=== PATIENT | male | born 1955 | race Caucasian/White ===

== ENCOUNTER 2019-02-05 18:25 | Inpatient (IN) | payer BC ==
[~2019-02-05] VITALS: Ht 182.9 cm; Wt 191.8 kg
[2019-02-05 19:45] LABS: BASOPHILS # (AUTO) 0.1 X10'3 (0-0.2); BASOPHILS % (AUTO) 1.3 % (0-1); EOSINOPHILS # (AUTO) 0.1 X10'3 (0-0.9); EOSINOPHILS % (AUTO) 1.9 % (0-6); HEMATOCRIT 44.5 % (42.0-52.0); HEMOGLOBIN 14.6 g/dl (14.0-17.9); LYMPHOCYTES # (AUTO) 1.7 X10'3 (1.1-4.8); LYMPHOCYTES % (AUTO) 21.9 % (21-51); MEAN CORPUSCULAR HEMOGLOBIN 31.8 PG (27.0-31.0); MEAN CORPUSCULAR HGB CONC 32.7 g/dL (33.0-36.5); MEAN CORPUSCULAR VOLUME 97.4 FL (78-98); MEAN PLATELET VOLUME 7.7 FL (7.4-10.4); MONOCYTES # (AUTO) 0.6 X10'3 (0-0.9); MONOCYTES % (AUTO) 7.9 % (2-12); NEUTROPHILS # (AUTO) 5.1 X10'3 (1.8-7.7); PLATELET COUNT 175 X10'3 (140-440); RED BLOOD COUNT 4.57 X10'6 (4.70-6.10); WHITE BLOOD COUNT 7.6 X10'3 (4.5-11.0)
[2019-02-05 19:50] LABS: ALANINE AMINOTRANSFERASE 32 U/L (12-78); ALBUMIN 3.7 G/DL (3.4-5.0); ALBUMIN/GLOBULIN RATIO 0.9 (1.1-1.5); ALKALINE PHOSPHATASE 90 IU/L (46-116); ANION GAP 3 (8-16); ASPARTATE AMINO TRANSFERASE 21 U/L (10-37); BILIRUBIN,TOTAL 0.4 MG/DL (0.1-1.0); BLOOD UREA NITROGEN 21 MG/DL (7-18); BUN/CREATININE RATIO 20.6 (5.4-32.0); CALCIUM 8.8 MG/DL (8.5-10.1); CHLORIDE 105 MMOL/L (99-107); CREATININE 1.02 MG/DL (0.60-1.10); GLUCOSE 135 MG/DL (70-104); POTASSIUM 4.3 MMOL/L (3.5-5.1); SODIUM 145 MMOL/L (135-145); TOTAL CARBON DIOXIDE 37.1 MMOL/L (24-32); TOTAL PROTEIN 7.8 G/DL (6.4-8.2); eGFR 74 ML/MIN
[2019-02-05 19:52] LABS: PARTIAL THROMBOPLASTIN TIME 25 SECONDS (22-32)
[2019-02-05] MEDS ORDERED: CARV3.122 PO (20:24)
[2019-02-05] MEDS ORDERED: ASPI-1265 PO (20:24)
[2019-02-05] MEDS ORDERED: DICL100G15 TOP (20:24)
[2019-02-05] MEDS ORDERED: FLUT1AER (20:24)
[2019-02-05] MEDS ORDERED: ALBU8.5H8 INH (20:24)
[2019-02-05] MEDS ORDERED: LORA10TA7 PO (20:24)
[2019-02-05] MEDS ORDERED: MONT10TA21 PO (20:24)
[2019-02-05] MEDS ORDERED: LOSA1TAB41 PO (20:24)
[2019-02-05] MEDS ORDERED: FLUT16SP2 BOTHNARES (20:24)
[2019-02-05] MEDS ORDERED: POTA20TA10 PO (20:24)
[2019-02-05] MEDS ORDERED: FURO40TA4 PO (20:24)
[2019-02-05 20:27] LABS: CLARITY,URINE CLEAR (Clear); COLOR,URINE STRAW (Yellow); GLUCOSE, URINE NEGATIVE (Neg); KETONES,URINE NEGATIVE (Neg); LEUKOCYTE ESTERASE ,URINE NEGATIVE (Neg); NITRITES, URINE NEGATIVE (Neg); OCCULT BLOOD,URINE NEGATIVE (Neg); PROTEIN,URINE NEGATIVE (Neg); UA COLLECTION TYPE URINAL; UROBILINOGEN,URINE 0.2 E.U/dL (0.2-1.0)
[2019-02-05] MEDS ORDERED: furosemide 10 MG/1 ML 10ml inj IV ONE (21:10)
[2019-02-05] MEDS ORDERED: acetaminophen 325mg tablet PO PRN (21:35)
[2019-02-05] MEDS ORDERED: magnesium 4gm in 100ml NS 100 ML IV PRN (21:35)
[2019-02-05] MEDS ORDERED: potassium CL 10mEq/100ml bag 100 ML IV PRN ×2 (21:35)
[2019-02-05] MEDS ORDERED: magnesium hydroxide 30ml (MOM) UD suspension PO PRN (21:35)
[2019-02-05] MEDS ORDERED: potassium Cl 20 mEq SR tablet PO PRN ×2 (21:35)
[2019-02-05] MEDS ORDERED: mag hydrox/Alum hydrox/simeth 30ml oral suspension PO PRN (21:35)
[2019-02-05] MEDS ORDERED: magnesium Cl slow-release 64mg tablet PO PRN (21:35)
[2019-02-05] MEDS ORDERED: ondansetron/PF 4mg/2ml inj IV PRN (21:35)
[2019-02-05] MEDS ORDERED: magnesium 2GM in 50ml NS 50 ML IV PRN (21:35)
--- NOTE | 2019-02-05 21:53 | NUR ---
Attempted to phone report to inpatient unit. RN not available, will attempt again shortly.
[2019-02-05 22:45] VITALS: BP 159/81
[2019-02-06] MEDS ORDERED: ipratropium/albuterol 3ml nebule NEB PRN (00:25)
[2019-02-06] MEDS: ipratropium/albuterol 3ml nebule NEB SCH ×5 (00:57→19:33)
[2019-02-06 02:00] VITALS: BP 126/56
[2019-02-06 02:04] LABS: BASOPHILS # (AUTO) 0.1 X10'3 (0-0.2); BASOPHILS % (AUTO) 1.2 % (0-1); EOSINOPHILS # (AUTO) 0.1 X10'3 (0-0.9); HEMATOCRIT 43.7 % (42.0-52.0); HEMOGLOBIN 14.7 g/dl (14.0-17.9); LYMPHOCYTES # (AUTO) 1.9 X10'3 (1.1-4.8); LYMPHOCYTES % (AUTO) 26.3 % (21-51); MEAN CORPUSCULAR HEMOGLOBIN 32.5 PG (27.0-31.0); MEAN CORPUSCULAR HGB CONC 33.6 g/dL (33.0-36.5); MEAN CORPUSCULAR VOLUME 96.9 FL (78-98); MEAN PLATELET VOLUME 7.6 FL (7.4-10.4); MONOCYTES # (AUTO) 0.7 X10'3 (0-0.9); MONOCYTES % (AUTO) 8.9 % (2-12); NEUTROPHILS # (AUTO) 4.5 X10'3 (1.8-7.7); NEUTROPHILS % (AUTO) 61.6 % (42-75); PLATELET COUNT 164 X10'3 (140-440); RED BLOOD COUNT 4.51 X10'6 (4.70-6.10); RED CELL DISTRIBUTION WIDTH 14.5 % (11.5-14.5); WHITE BLOOD COUNT 7.4 X10'3 (4.5-11.0)
[2019-02-06 02:20] LABS: ALBUMIN 3.8 G/DL (3.4-5.0); ANION GAP 4 (8-16); BLOOD UREA NITROGEN 24 MG/DL (7-18); BUN/CREATININE RATIO 23.1 (5.4-32.0); CALCIUM 9.1 MG/DL (8.5-10.1); CHLORIDE 103 MMOL/L (99-107); CREATININE 1.04 MG/DL (0.60-1.10); GLUCOSE 111 MG/DL (70-104); MAGNESIUM 2.2 MG/DL (1.5-2.4); SODIUM 144 MMOL/L (135-145); TOTAL CARBON DIOXIDE 37.2 MMOL/L (24-32); eGFR 72 ML/MIN
--- NOTE | 2019-02-06 06:00 | NUR ---
Patient in room PCU 3013. I have received report from Sushant DOBBS and had the opportunity to ask questions and assume patient care.
--- NOTE | 2019-02-06 06:34 | NUR ---
Problems reprioritized. Patient report given, questions answered & plan of care reviewed with Titi Rn. Bedside report completed. pt resting quielty. Cpap currently on, setting at 40 % FIo2. no distress noted.
[2019-02-06 06:52] VITALS: BP 138/58
[2019-02-06] MEDS: budesonide 0.5mg/2ml UD nebule IH SCH (07:51)
[2019-02-06] MEDS: K and/or MAG REPLACEMENT MC SCH (08:00)
--- NOTE | 2019-02-06 08:20 | NUR ---
Pt had a 4 beat run of V-tach at 0800. Dr. Spears aware, no new orders
[2019-02-06] MEDS: furosemide 10 MG/1 ML 10ml inj IV SCH ×2 (08:21→19:57)
[2019-02-06] MEDS: HYDROchlorothiazide 12.5mg capsule PO SCH (08:22)
[2019-02-06] MEDS: montelukast 10mg tablet PO SCH (08:22)
[2019-02-06] MEDS: loratadine 10mg tablet PO SCH (08:22)
[2019-02-06] MEDS: carVEDilol 3.125mg tablet PO SCH ×2 (08:22→19:56)
[2019-02-06] MEDS: aspirin 81mg tab.chew PO SCH (08:22)
[2019-02-06] MEDS: enoxaparin 40mg/0.4ml syringe SQ SCH (08:23)
[2019-02-06] MEDS: losartan 50mg tablet PO SCH (08:25)
[2019-02-06] MEDS ORDERED: HYDR25TA4 PO (09:03)
[2019-02-06 11:00] VITALS: BP 158/83
[2019-02-06 15:00] VITALS: BP 139/69
[2019-02-06 18:00] VITALS: BP 132/84
--- NOTE | 2019-02-06 18:00 | NUR ---
Patient in room PCU 3013A I have received report from DILIA Walls and had the opportunity to ask questions and assume patient care. Pt is A & O X4, denies CP, dizziness, n/v. He is in 3L of oxygen via NC and rated pain 0/10.
--- NOTE | 2019-02-06 18:00 | NUR ---
Problems reprioritized. Patient report given, questions answered & plan of care reviewed with gene DOBBS.
[2019-02-06 20:00] VITALS: BP 110/69
[2019-02-07 02:00] VITALS: BP 162/56
--- NOTE | 2019-02-07 06:00 | NUR ---
Problems reprioritized. Patient report given, questions answered & plan of care reviewed with DILIA Walls. Pt stable at shift change
--- NOTE | 2019-02-07 06:00 | NUR ---
Patient in room PCU 3013. I have received report from Dennis DOBBS and had the opportunity to ask questions and assume patient care.
[2019-02-07 06:29] LABS: ALBUMIN 3.3 G/DL (3.4-5.0); ANION GAP 2 (8-16); BLOOD UREA NITROGEN 25 MG/DL (7-18); BUN/CREATININE RATIO 23.6 (5.4-32.0); CALCIUM 8.9 MG/DL (8.5-10.1); CHLORIDE 102 MMOL/L (99-107); CREATININE 1.06 MG/DL (0.60-1.10); GLUCOSE 98 MG/DL (70-104); MAGNESIUM 2.3 MG/DL (1.5-2.4); POTASSIUM 3.6 MMOL/L (3.5-5.1); SODIUM 144 MMOL/L (135-145); TOTAL CARBON DIOXIDE 39.9 MMOL/L (24-32); eGFR 70 ML/MIN
[2019-02-07 06:39] LABS: BASOPHILS % (AUTO) 0.6 % (0-1); EOSINOPHILS # (AUTO) 0.2 X10'3 (0-0.9); EOSINOPHILS % (AUTO) 2.5 % (0-6); HEMATOCRIT 42.5 % (42.0-52.0); LYMPHOCYTES # (AUTO) 1.7 X10'3 (1.1-4.8); LYMPHOCYTES % (AUTO) 26.7 % (21-51); MEAN CORPUSCULAR HEMOGLOBIN 32.2 PG (27.0-31.0); MEAN CORPUSCULAR VOLUME 97.6 FL (78-98); MEAN PLATELET VOLUME 7.9 FL (7.4-10.4); MONOCYTES # (AUTO) 0.7 X10'3 (0-0.9); MONOCYTES % (AUTO) 11.3 % (2-12); NEUTROPHILS # (AUTO) 3.8 X10'3 (1.8-7.7); NEUTROPHILS % (AUTO) 58.9 % (42-75); PLATELET COUNT 143 X10'3 (140-440); RED BLOOD COUNT 4.35 X10'6 (4.70-6.10); WHITE BLOOD COUNT 6.4 X10'3 (4.5-11.0)
[2019-02-07] MEDS: budesonide 0.5mg/2ml UD nebule IH SCH (07:30)
[2019-02-07] MEDS: ipratropium/albuterol 3ml nebule NEB SCH ×4 (07:31→19:43)
[2019-02-07] MEDS: K and/or MAG REPLACEMENT MC SCH (08:00)
[2019-02-07] MEDS: montelukast 10mg tablet PO SCH (08:01)
[2019-02-07] MEDS: furosemide 10 MG/1 ML 10ml inj IV SCH ×2 (08:01→19:47)
[2019-02-07] MEDS: HYDROchlorothiazide 12.5mg capsule PO SCH (08:01)
[2019-02-07] MEDS: enoxaparin 40mg/0.4ml syringe SQ SCH (08:02)
[2019-02-07] MEDS: aspirin 81mg tab.chew PO SCH (08:02)
[2019-02-07] MEDS: loratadine 10mg tablet PO SCH (08:02)
[2019-02-07] MEDS: carVEDilol 3.125mg tablet PO SCH ×2 (08:02→19:47)
[2019-02-07] MEDS: losartan 50mg tablet PO SCH (08:02)
[2019-02-07] MEDS: nystatin 15 GM powder TP SCH ×3 (08:03→19:59)
[2019-02-07 11:00] VITALS: BP 127/61
--- NOTE | 2019-02-07 14:09 | NUR ---
Pt ambulated 300ft with fww while on 3L NC. Pt did not complain of any sob and tolerated well. Pt's O2 dropped to 89% at lowest point.
[2019-02-07 15:00] VITALS: BP 129/63
[2019-02-07 18:00] VITALS: BP 129/63
--- NOTE | 2019-02-07 18:08 | NUR ---
Patient in room PCU 3013A. I have received report from DILIA Walls and had the opportunity to ask questions and assume patient care. Pt is alert and oriented x 4, denies dizziness, CP, n/v and rated pain 0/10.
--- NOTE | 2019-02-07 18:08 | NUR ---
Problems reprioritized. Patient report given, questions answered & plan of care reviewed with Dennis DOBBS.
[2019-02-07 22:00] VITALS: BP 143/71
[2019-02-07] MEDS: acetaminophen 325mg tablet PO PRN (23:31)
[2019-02-08 02:00] VITALS: BP 99/80
[2019-02-08 06:00] VITALS: BP 115/64
--- NOTE | 2019-02-08 06:20 | NUR ---
Problems reprioritized. Patient report given, questions answered & plan of care reviewed with DILIA Stringer. Pt stable at shift change
--- NOTE | 2019-02-08 06:25 | NUR ---
Patient in room PCU 3013. I have received report from Dennis DOBBS and had the opportunity to ask questions and assume patient care.
[2019-02-08 06:26] LABS: ALBUMIN 3.6 G/DL (3.4-5.0); ANION GAP 4 (8-16); BASOPHILS % (AUTO) 0.6 % (0-1); BLOOD UREA NITROGEN 20 MG/DL (7-18); BUN/CREATININE RATIO 18.7 (5.4-32.0); CALCIUM 9.1 MG/DL (8.5-10.1); CHLORIDE 99 MMOL/L (99-107); CREATININE 1.07 MG/DL (0.60-1.10); EOSINOPHILS # (AUTO) 0.1 X10'3 (0-0.9); EOSINOPHILS % (AUTO) 1.4 % (0-6); GLUCOSE 102 MG/DL (70-104); HEMATOCRIT 44.8 % (42.0-52.0); HEMOGLOBIN 15.1 g/dl (14.0-17.9); LYMPHOCYTES # (AUTO) 1.5 X10'3 (1.1-4.8); LYMPHOCYTES % (AUTO) 18.9 % (21-51); MAGNESIUM 2.2 MG/DL (1.5-2.4); MEAN CORPUSCULAR HEMOGLOBIN 32.6 PG (27.0-31.0); MEAN CORPUSCULAR HGB CONC 33.8 g/dL (33.0-36.5); MEAN CORPUSCULAR VOLUME 96.5 FL (78-98); MONOCYTES % (AUTO) 12.5 % (2-12); NEUTROPHILS # (AUTO) 5.5 X10'3 (1.8-7.7); NEUTROPHILS % (AUTO) 66.6 % (42-75); PLATELET COUNT 155 X10'3 (140-440); POTASSIUM 3.4 MMOL/L (3.5-5.1); RED BLOOD COUNT 4.65 X10'6 (4.70-6.10); RED CELL DISTRIBUTION WIDTH 13.9 % (11.5-14.5); SODIUM 142 MMOL/L (135-145); TOTAL CARBON DIOXIDE 39.2 MMOL/L (24-32); WHITE BLOOD COUNT 8.2 X10'3 (4.5-11.0); eGFR 70 ML/MIN
--- NOTE | 2019-02-08 06:37 | NUR ---
Patient in room PCU 3011. I have received report from Dennis DOBBS and had the opportunity to ask questions and assume patient care.
[2019-02-08] MEDS: ipratropium/albuterol 3ml nebule NEB SCH ×3 (06:58→14:57)
[2019-02-08] MEDS: budesonide 0.5mg/2ml UD nebule IH SCH (07:00)
--- NOTE | 2019-02-08 07:10 | NUR ---
PT. ON BI-PAP WHEN I ARRIVED BUT WANTED TO TAKE IT OFF RIGHT AWAY. NO BIPAP ASSESSMENT Addendum: 02/08/19 at 0711 by Armani Mendoza RT Amended: Links added.
[2019-02-08] MEDS: K and/or MAG REPLACEMENT MC SCH (08:00)
[2019-02-08] MEDS: enoxaparin 40mg/0.4ml syringe SQ SCH (08:19)
[2019-02-08] MEDS: nystatin 15 GM powder TP SCH ×2 (08:19→13:19)
[2019-02-08] MEDS: loratadine 10mg tablet PO SCH (08:21)
[2019-02-08] MEDS: HYDROchlorothiazide 12.5mg capsule PO SCH (08:21)
[2019-02-08] MEDS: losartan 50mg tablet PO SCH (08:21)
[2019-02-08] MEDS: carVEDilol 3.125mg tablet PO SCH (08:22)
[2019-02-08] MEDS: montelukast 10mg tablet PO SCH (08:22)
[2019-02-08] MEDS: aspirin 81mg tab.chew PO SCH (08:22)
[2019-02-08] MEDS: acetaminophen 325mg tablet PO PRN ×2 (08:23→15:27)
[2019-02-08] MEDS: furosemide 10 MG/1 ML 10ml inj IV SCH (08:24)
--- NOTE | 2019-02-08 09:50 | NUR ---
Dr. Rodriguez at the bedside. Spoke with the patient and answered all questions/concerns. Per MD, pt okay to d/c later today after he walks 100 feet.
[2019-02-08 11:00] VITALS: BP 123/64
[2019-02-08] MEDS ORDERED: LOSA50TA64 PO ×3 (15:21→16:12)
[2019-02-08] MEDS ORDERED: FURO-150 PO (15:21)
--- NOTE | 2019-02-08 15:59 | NUR ---
Malou Rodriguez regarding d/c medications PAGER ID: [phone] MESSAGE: Room 3013A, Xander Bains. I have a question regarding pt's d/c medications, please call. Jyoti DOBBS ex.[phone] Addendum: 02/08/19 at 1611 by Radha Samuels RN Per MD d/c order for Losartan Potassium, increase tablets dispensed from 30 to 60 tablets Addendum: 02/08/19 at 1613 by Radha Samuels RN Per , the new orders for discharge medication, Losartan, needs to be 60 tabs instead of 30 tabs dispensed.
--- NOTE | 2019-02-08 16:38 | NUR ---
Pt okay to d/c per , d/c instructions reviewed with patient and , all questions answered regarding new prescriptions/disease management/follow up. Diabetes survival skills and CHF management were reviewed with the pt. Pt made own f/u apt. w/ Dr. Mattson this Saturday. New prescriptions called into [facility] pharmacy in [place]. Tele monitor discontinued, removed PIV. Pt left the unit in a wheelchair w/ and RN and was helped into own private vehicle.
== END 2019-02-08 16:50 | disposition home or self-care (01) | DRG 291 ==
LOC: ER 18:25 → ED HOLD 21:53 → PCU 3S 22:00
PROVIDERS: ADMIT Hospitalist; ATTEND Hospitalist
PROC: 5A09357 Assistance with Respiratory Ventilation, Less than 24 Consecutive Hours, Continuous Positive Airway Pressure (ICD-10-PCS; principal; 2019-02-06)
PROC: 5A09357 Assistance with Respiratory Ventilation, Less than 24 Consecutive Hours, Continuous Positive Airway Pressure (ICD-10-PCS; 2019-02-07)
PROC: 5A09357 Assistance with Respiratory Ventilation, Less than 24 Consecutive Hours, Continuous Positive Airway Pressure (ICD-10-PCS; 2019-02-08)
DX: I50.33 Acute on chronic diastolic (congestive) heart failure (principal); J96.01 Acute respiratory failure with hypoxia; J44.9 Chronic obstructive pulmonary disease, unspecified; G47.30 Sleep apnea, unspecified; E66.01 Morbid (severe) obesity due to excess calories; Z88.8 Allergy status to other drugs, medicaments and biological substances; Z79.899 Other long term (current) drug therapy
CPT/HCPCS: 36415; 71045; 80048; 80053; 81003; 83735; 83880; 84484; 85025; 85610; 85730; 87081; 93005; 93306; 94640; 94660; 94760; G0378; J1650; J1940; J7626

== ENCOUNTER 2020-12-09 21:33 | Inpatient (IN) | payer MEDICARE ==
[~2020-12-09] VITALS: Ht 182.9 cm; Wt 193.1 kg
[~2020-12-09 21:33] MED LIST: ALBU8.5H17 INH; ASPI-1265 PO; CARV3.122 PO; DICL100G15 TOP; FLUT16SP2 BOTHNARES; FLUT1AER IH; FURO40TA4 PO; LOSA50TA64 PO; MONT10TA21 PO; POTA-197 PO
[2020-12-09 23:30] LABS: BASOPHILS % (AUTO) 0.5 % (0-1); EOSINOPHILS # (AUTO) 0.1 X10'3 (0-0.9); HEMATOCRIT 39.6 % (42.0-52.0); HEMOGLOBIN 12.7 g/dl (14.0-17.9); LYMPHOCYTES # (AUTO) 1.2 X10'3 (1.1-4.8); MEAN CORPUSCULAR HEMOGLOBIN 33.7 PG (27.0-31.0); MEAN CORPUSCULAR HGB CONC 32.1 g/dL (33.0-36.5); MONOCYTES # (AUTO) 0.7 X10'3 (0-0.9); MONOCYTES % (AUTO) 11.2 % (2-12); NEUTROPHILS # (AUTO) 4.1 X10'3 (1.8-7.7); NEUTROPHILS % (AUTO) 67.3 % (42-75); PLATELET COUNT 143 X10'3 (140-440); RED BLOOD COUNT 3.78 X10'6 (4.70-6.10); RED CELL DISTRIBUTION WIDTH 14.3 % (11.5-14.5); WHITE BLOOD COUNT 6.1 X10'3 (4.5-11.0)
[2020-12-09 23:45] LABS: ALANINE AMINOTRANSFERASE 27 U/L (12-78); ALBUMIN 3.8 G/DL (3.4-5.0); ALBUMIN/GLOBULIN RATIO 0.9 (1.1-1.5); ALKALINE PHOSPHATASE 89 IU/L (46-116); ANION GAP -3 (8-16); ASPARTATE AMINO TRANSFERASE 19 U/L (10-37); BILIRUBIN,TOTAL 0.5 MG/DL (0.1-1.0); BLOOD UREA NITROGEN 18 MG/DL (7-18); BUN/CREATININE RATIO 16.7 (5.4-32.0); CALCIUM 8.8 MG/DL (8.5-10.1); CHLORIDE 104 MMOL/L (99-107); CREATININE 1.08 MG/DL (0.60-1.10); GLUCOSE 113 MG/DL (70-104); SODIUM 143 MMOL/L (135-145); TOTAL PROTEIN 8.1 G/DL (6.4-8.2); eGFR 68 ML/MIN
[2020-12-09 23:48] LABS: TOTAL CARBON DIOXIDE 41.8 MMOL/L (24-32)
--- NOTE | 2020-12-10 01:37 | NUR ---
TELE / NEURO WAS CONTACTED ON 12/10/20 @ 01:33 AM.
[2020-12-10] MEDS ORDERED: LOSA100T57 PO (02:37)
[2020-12-10] MEDS ORDERED: P-EP-35 PO (02:37)
[2020-12-10] MEDS ORDERED: APIX5TAB3 PO (02:37)
[2020-12-10 02:40] LABS: ABG HCO3 45.5 mmol/L (22.0-26.0); ABG PCO2 (T) 90.2 mmHg (35.0-48.0); ABG PO2 (T) 76.4 mmHg (75.0-100.0); ALLEN'S TEST POSITIVE; FCOHb 0.9 % (0.0-3.9); FLOW 3 L/min; FMetHb 0.2 % (0.0-1.5); PATIENT TEMPERATURE 36.7; TOTAL HEMOGLOBIN 13.4 G/dl (14.0-18.0)
[2020-12-10] MEDS ORDERED: magnesium Cl slow-release 64mg tablet PO PRN (02:45)
[2020-12-10] MEDS ORDERED: potassium Cl 40MEQ/1/2NS 520ml 520 ML IV PRN ×2 (02:45)
[2020-12-10] MEDS ORDERED: potassium Cl 20 mEq SR tablet PO PRN ×2 (02:45)
[2020-12-10] MEDS ORDERED: magnesium 2GM in 50ml NS 50 ML IV PRN (02:45)
[2020-12-10] MEDS ORDERED: magnesium 4gm in 100ml NS 100 ML IV PRN (02:45)
[2020-12-10] MEDS ORDERED: acetaminophen 325mg tablet PO PRN (02:45)
[2020-12-10] MEDS ORDERED: ondansetron/PF 4mg/2ml inj IV PRN (02:45)
[2020-12-10] MEDS ORDERED: albuterol 2.5 MG/3 ML nebule NEB PRN (03:20)
[2020-12-10] MEDS ORDERED: LORA10TA7 PO (03:23)
[2020-12-10 03:53] LABS: HEMOGLOBIN A1C 6.6 % (4.5-6.2)
[2020-12-10] MEDS: normal saline 1000ml 1,000 ML IV SCH ×2 (03:57→16:58)
[2020-12-10] MEDS ORDERED: DICLOFENAC SODIUM TOP PRN (07:05)
[2020-12-10] MEDS: budesonide 0.5mg/2ml UD nebule IH SCH ×2 (08:00→20:11)
[2020-12-10] MEDS ORDERED: PERFLUTREN PROTEIN-A MICROSPHR (Optison) 0.22 MG/ML 3ML VIAL IV ONE (08:00)
[2020-12-10] MEDS ORDERED: heparin, porcine 5000 units/ml vial SQ SCH (08:00)
[2020-12-10] MEDS: aspirin 81mg, enteric-coated 1 TAB TABLET.DR PO SCH (08:00)
[2020-12-10] MEDS: K and/or MAG REPLACEMENT MC SCH ×2 (08:00→19:13)
[2020-12-10] MEDS: fluticasone nasal spray 16GM bottle NS SCH (08:00)
[2020-12-10] MEDS: montelukast 10mg tablet PO SCH (08:25)
[2020-12-10] MEDS: carVEDilol 3.125mg tablet PO SCH ×2 (08:26→19:49)
[2020-12-10] MEDS: furosemide 40mg tablet PO SCH ×2 (08:27→19:49)
[2020-12-10] MEDS: potassium Cl 20 mEq SR tablet PO SCH ×2 (08:27→19:48)
[2020-12-10] MEDS: apixaban 5mg tablet PO SCH ×2 (09:45→19:48)
[2020-12-10] MEDS: losartan 50mg tablet PO SCH (09:45)
[2020-12-10] MEDS: loratadine 10mg tablet PO SCH (09:46)
--- NOTE | 2020-12-10 10:05 | NUR ---
DR. HAILE PLACED PACEMAKER IN PT, MRI REQUESTING MORE INFORMATION BEFORE IT CAN BE DETERMINED IF PT IS AN MRI STELLA
[2020-12-10] MEDS: albuterol 2.5 MG/3 ML nebule NEB PRN ×2 (15:11→20:11)
[2020-12-10 23:32] VITALS: BP 166/81
[2020-12-11 00:24] VITALS: BP 152/70
[2020-12-11] MEDS: acetaminophen 325mg tablet PO PRN ×2 (00:49→12:33)
[2020-12-11] MEDS: albuterol 2.5 MG/3 ML nebule NEB PRN (01:26)
--- NOTE | 2020-12-11 05:48 | NUR ---
Received Patient from ED PCU 3027. I have received report from ED nurse and had the opportunity to ask questions and assume patient care. Patient on oxygen via nasal cannula, no respiratory distress noted.
--- NOTE | 2020-12-11 06:15 | NUR ---
Patient in room PCU 3027. I have received report from [facility] and had the opportunity to ask questions and assume patient care. Patient is resting comfortably in bed.
[2020-12-11 06:53] LABS: BASOPHILS % (AUTO) 0.5 % (0-1); EOSINOPHILS # (AUTO) 0.1 X10'3 (0-0.9); EOSINOPHILS % (AUTO) 2.2 % (0-6); HEMATOCRIT 35.1 % (42.0-52.0); HEMOGLOBIN 11.6 g/dl (14.0-17.9); LYMPHOCYTES # (AUTO) 0.9 X10'3 (1.1-4.8); LYMPHOCYTES % (AUTO) 19.4 % (21-51); MEAN CORPUSCULAR HEMOGLOBIN 33.9 PG (27.0-31.0); MEAN CORPUSCULAR HGB CONC 33.1 g/dL (33.0-36.5); MEAN CORPUSCULAR VOLUME 102.4 FL (78-98); MEAN PLATELET VOLUME 7.8 FL (7.4-10.4); MONOCYTES # (AUTO) 0.4 X10'3 (0-0.9); MONOCYTES % (AUTO) 10.1 % (2-12); NEUTROPHILS % (AUTO) 67.8 % (42-75); PLATELET COUNT 118 X10'3 (140-440); RED BLOOD COUNT 3.43 X10'6 (4.70-6.10); RED CELL DISTRIBUTION WIDTH 13.6 % (11.5-14.5); WHITE BLOOD COUNT 4.4 X10'3 (4.5-11.0)
[2020-12-11 06:56] LABS: ALANINE AMINOTRANSFERASE 22 U/L (12-78); ALBUMIN 3.5 G/DL (3.4-5.0); ALBUMIN/GLOBULIN RATIO 0.9 (1.1-1.5); ALKALINE PHOSPHATASE 70 IU/L (46-116); ANION GAP 3 (8-16); ASPARTATE AMINO TRANSFERASE 21 U/L (10-37); BILIRUBIN,TOTAL 0.7 MG/DL (0.1-1.0); BLOOD UREA NITROGEN 18 MG/DL (7-18); CALCIUM 8.9 MG/DL (8.5-10.1); CHLORIDE 104 MMOL/L (99-107); CHOL/HDL RATIO 3.2 (0.00-4.99); CHOLESTEROL 127 MG/DL (0-200); CREATININE 0.82 MG/DL (0.60-1.10); GLUCOSE 96 MG/DL (70-104); HDL CHOLESTEROL 40 MG/DL (35-60); LDL CHOLESTEROL 71 MG/DL (50-100); MAGNESIUM 2.5 MG/DL (1.5-2.4); PHOSPHORUS 2.8 MG/DL (2.3-4.5); POTASSIUM 3.9 MMOL/L (3.5-5.1); SODIUM 148 MMOL/L (135-145); TOTAL PROTEIN 7.2 G/DL (6.4-8.2); TRIGLYCERIDES 82 MG/DL (20-135); eGFR > 90 ML/MIN
[2020-12-11 06:59] LABS: TOTAL CARBON DIOXIDE 41.5 MMOL/L (24-32)
[2020-12-11 07:00] VITALS: BP 126/59
--- NOTE | 2020-12-11 07:02 | NUR ---
Page Sent promotional table spacer PAGER ID: [phone] MESSAGE: JL DOBBS [phone] RE: ENMANUEL STEWART [id number]. CRITICAL BLOOD GLUCOSE 407. THANK YOU
[2020-12-11] MEDS: normal saline 1000ml 1,000 ML IV SCH (07:16)
[2020-12-11] MEDS: albuterol 2.5 MG/3 ML nebule NEB SCH ×4 (07:22→19:38)
[2020-12-11] MEDS: budesonide 0.5mg/2ml UD nebule IH SCH ×2 (07:22→19:38)
--- NOTE | 2020-12-11 07:51 | NUR ---
Patient in room PCU 3027. I have received report from Danette DOBBS and had the opportunity to ask questions and assume patient care.
[2020-12-11] MEDS: fluticasone nasal spray 16GM bottle NS SCH (08:00)
[2020-12-11] MEDS: K and/or MAG REPLACEMENT MC SCH ×2 (08:00→20:00)
[2020-12-11] MEDS: carVEDilol 3.125mg tablet PO SCH ×2 (09:26→21:41)
[2020-12-11] MEDS: loratadine 10mg tablet PO SCH (09:26)
[2020-12-11] MEDS: losartan 50mg tablet PO SCH (09:27)
[2020-12-11] MEDS: apixaban 5mg tablet PO SCH ×2 (09:28→21:41)
[2020-12-11] MEDS: potassium Cl 20 mEq SR tablet PO SCH ×2 (09:28→21:40)
[2020-12-11] MEDS: montelukast 10mg tablet PO SCH (09:28)
[2020-12-11] MEDS: furosemide 40mg tablet PO SCH ×2 (09:28→21:40)
[2020-12-11] MEDS: atorvastatin 20mg tablet PO SCH (09:28)
[2020-12-11] MEDS: aspirin 81mg, enteric-coated 1 TAB TABLET.DR PO SCH (09:28)
[2020-12-11 11:00] VITALS: BP 154/74
--- NOTE | 2020-12-11 11:41 | NUR ---
[id number] page to Respiratory [id number] Herson. Patient has order for ABG and for cpap. Please set cpap up. Thank you Gayla [phone]
--- NOTE | 2020-12-11 11:44 | NUR ---
At bedside Dr. Stevenson gave me orders for a new ABG, cpap, and PT eval and treat. I also put in a WOC consult for [facility].
[2020-12-11] MEDS ORDERED: iohexol 350MG/ML 100ml bottle IV ONE (12:36)
[2020-12-11 15:00] VITALS: BP 119/50
--- NOTE | 2020-12-11 15:37 | NUR ---
Page Sent promotional table spacer PAGER ID: [phone] MESSAGE: [id number] Herson. Dr. Adames from [facility] would like you to call him to discuss findings from the CTA of head and neck. # [phone] . Gayla [phone]
[2020-12-11 16:53] LABS: ABG BASE EXCESS 12.8 mmol/L (-2.0-2.0); ABG HCO3 42.7 mmol/L (22.0-26.0); ABG OXYGEN SATURATION 90.8 % (94-97); ABG PCO2 (T) 86.7 mmHg (35.0-48.0); ALLEN'S TEST POSITIVE; FCOHb 0.6 % (0.0-3.9); FMetHb 0.3 % (0.0-1.5); TOTAL HEMOGLOBIN 12.6 G/dl (14.0-18.0)
--- NOTE | 2020-12-11 17:41 | NUR ---
Orientee documentation: I have reviewed and agree with all interventions, assessments performed and documented by Dariela Agosto Medication Administration: For this medication-pass time frame, all medication were reviewed, dispensed, administered and documented per hospital policy by Dariela DOBBS. .
[2020-12-11 18:00] VITALS: BP 98/74
--- NOTE | 2020-12-11 18:08 | NUR ---
Problems reprioritized. Patient report given, questions answered & plan of care reviewed with Yazmin DOBBS. Patient sleeping comfortably, on bipap, and in no acute distress. at bedside.
--- NOTE | 2020-12-11 18:11 | NUR ---
Patient in room PCU 3027. I have received report from Gayla RN/Yaima RN and had the opportunity to ask questions and assume patient care.
[2020-12-11 22:00] VITALS: BP 136/54
[2020-12-12 02:00] VITALS: BP 139/72
[2020-12-12] MEDS: normal saline 1000ml 1,000 ML IV SCH ×2 (03:40→11:52)
--- NOTE | 2020-12-12 06:11 | NUR ---
Problems reprioritized. Patient report given, questions answered & plan of care reviewed with DILIA Shukla/DILIA Erwin.
--- NOTE | 2020-12-12 06:51 | NUR ---
Patient in room PCU 3027. I have received report from Yazmin DOBBS and had the opportunity to ask questions and assume patient care.
[2020-12-12 07:00] VITALS: BP 142/74
[2020-12-12 07:08] LABS: BASOPHILS % (AUTO) 0.6 % (0-1); EOSINOPHILS # (AUTO) 0.1 X10'3 (0-0.9); EOSINOPHILS % (AUTO) 2.1 % (0-6); HEMATOCRIT 35.8 % (42.0-52.0); HEMOGLOBIN 11.9 g/dl (14.0-17.9); LYMPHOCYTES # (AUTO) 0.7 X10'3 (1.1-4.8); LYMPHOCYTES % (AUTO) 16.5 % (21-51); MEAN CORPUSCULAR HEMOGLOBIN 34.4 PG (27.0-31.0); MEAN CORPUSCULAR HGB CONC 33.2 g/dL (33.0-36.5); MEAN CORPUSCULAR VOLUME 103.5 FL (78-98); MEAN PLATELET VOLUME 7.9 FL (7.4-10.4); MONOCYTES # (AUTO) 0.5 X10'3 (0-0.9); MONOCYTES % (AUTO) 11.5 % (2-12); NEUTROPHILS % (AUTO) 69.3 % (42-75); PLATELET COUNT 114 X10'3 (140-440); RED BLOOD COUNT 3.46 X10'6 (4.70-6.10); RED CELL DISTRIBUTION WIDTH 13.6 % (11.5-14.5); WHITE BLOOD COUNT 4.4 X10'3 (4.5-11.0)
[2020-12-12] MEDS: albuterol 2.5 MG/3 ML nebule NEB SCH ×4 (07:11→19:57)
[2020-12-12] MEDS: budesonide 0.5mg/2ml UD nebule IH SCH ×2 (07:11→19:57)
[2020-12-12 07:35] LABS: ALANINE AMINOTRANSFERASE 24 U/L (12-78); ALBUMIN 3.3 G/DL (3.4-5.0); ALBUMIN/GLOBULIN RATIO 0.8 (1.1-1.5); ALKALINE PHOSPHATASE 70 IU/L (46-116); ANION GAP -1 (8-16); ASPARTATE AMINO TRANSFERASE 22 U/L (10-37); BILIRUBIN,TOTAL 0.7 MG/DL (0.1-1.0); BLOOD UREA NITROGEN 14 MG/DL (7-18); BUN/CREATININE RATIO 16.9 (5.4-32.0); CALCIUM 8.7 MG/DL (8.5-10.1); CHLORIDE 102 MMOL/L (99-107); CREATININE 0.83 MG/DL (0.60-1.10); GLUCOSE 97 MG/DL (70-104); MAGNESIUM 2.4 MG/DL (1.5-2.4); PHOSPHORUS 3.2 MG/DL (2.3-4.5); POTASSIUM 3.9 MMOL/L (3.5-5.1); SODIUM 139 MMOL/L (135-145); TOTAL CARBON DIOXIDE 38.2 MMOL/L (24-32); TOTAL PROTEIN 7.2 G/DL (6.4-8.2); eGFR > 90 ML/MIN
[2020-12-12] MEDS: K and/or MAG REPLACEMENT MC SCH ×2 (08:00→20:00)
[2020-12-12] MEDS: fluticasone nasal spray 16GM bottle NS SCH (08:13)
[2020-12-12] MEDS: aspirin 81mg, enteric-coated 1 TAB TABLET.DR PO SCH (08:14)
[2020-12-12] MEDS: loratadine 10mg tablet PO SCH (08:14)
[2020-12-12] MEDS: furosemide 40mg tablet PO SCH ×2 (08:14→21:28)
[2020-12-12] MEDS: potassium Cl 20 mEq SR tablet PO SCH ×2 (08:14→21:28)
[2020-12-12] MEDS: apixaban 5mg tablet PO SCH ×2 (08:14→21:28)
[2020-12-12] MEDS: atorvastatin 20mg tablet PO SCH (08:14)
[2020-12-12] MEDS: losartan 50mg tablet PO SCH (08:15)
[2020-12-12] MEDS: montelukast 10mg tablet PO SCH (08:16)
[2020-12-12] MEDS: carVEDilol 3.125mg tablet PO SCH ×2 (08:16→21:28)
[2020-12-12] MEDS: acetaminophen 325mg tablet PO PRN ×2 (08:24→22:56)
[2020-12-12] MEDS ORDERED: normal saline 1000ml 1,000 ML IVB ONE (10:00)
[2020-12-12 11:00] VITALS: BP 128/69
[2020-12-12] MEDS ORDERED: iohexol 350MG/ML 100ml bottle IV ONE (14:41)
[2020-12-12 15:00] VITALS: BP 144/63
--- NOTE | 2020-12-12 16:58 | NUR ---
Per Dwayne, director of wound care, ok to order a shalini bed for patient.
[2020-12-12 18:00] VITALS: BP 146/76
--- NOTE | 2020-12-12 18:03 | NUR ---
Problems reprioritized. Patient report given, questions answered & plan of care reviewed with Yazmin DOBBS. Patient just returned from CT and is resting in bed eating dinner.
[2020-12-12 22:00] VITALS: BP 165/97
--- NOTE | 2020-12-12 22:09 | NUR ---
RT Page Moshe Bains rm [id number] Pt states "too much air" is coming out of the bipap. Can you please assess and adjust? Thank you!
[2020-12-13 02:00] VITALS: BP 151/86
[2020-12-13] MEDS: normal saline 1000ml 1,000 ML IV SCH ×2 (03:33→16:50)
--- NOTE | 2020-12-13 04:52 | NUR ---
Patient in room U 3027. I have received report from DILIA Shukla and had the opportunity to ask questions and assume patient care. Addendum: 12/14/20 at 0456 by Julia Champion RN Time 1822
--- NOTE | 2020-12-13 06:15 | NUR ---
Problems reprioritized. Patient report given, questions answered & plan of care reviewed with DILIA Shukla and DILIA Erwin.
--- NOTE | 2020-12-13 06:18 | NUR ---
Patient in room PCU 3027. I have received report from Yazmin DOBBS and had the opportunity to ask questions and assume patient care. Patient resting in bed in no acute distress.
[2020-12-13 06:57] LABS: BASOPHILS % (AUTO) 0.5 % (0-1); EOSINOPHILS # (AUTO) 0.1 X10'3 (0-0.9); EOSINOPHILS % (AUTO) 1.7 % (0-6); HEMATOCRIT 35.3 % (42.0-52.0); HEMOGLOBIN 11.6 g/dl (14.0-17.9); LYMPHOCYTES # (AUTO) 0.8 X10'3 (1.1-4.8); LYMPHOCYTES % (AUTO) 18.4 % (21-51); MEAN CORPUSCULAR HEMOGLOBIN 33.9 PG (27.0-31.0); MEAN CORPUSCULAR HGB CONC 32.8 g/dL (33.0-36.5); MEAN CORPUSCULAR VOLUME 103.3 FL (78-98); MEAN PLATELET VOLUME 7.8 FL (7.4-10.4); MONOCYTES # (AUTO) 0.6 X10'3 (0-0.9); MONOCYTES % (AUTO) 12.3 % (2-12); NEUTROPHILS % (AUTO) 67.1 % (42-75); PLATELET COUNT 114 X10'3 (140-440); RED BLOOD COUNT 3.41 X10'6 (4.70-6.10); RED CELL DISTRIBUTION WIDTH 13.9 % (11.5-14.5); WHITE BLOOD COUNT 4.5 X10'3 (4.5-11.0)
[2020-12-13 07:00] VITALS: BP 148/63
[2020-12-13 07:12] LABS: ALANINE AMINOTRANSFERASE 24 U/L (12-78); ALBUMIN 3.3 G/DL (3.4-5.0); ALBUMIN/GLOBULIN RATIO 0.8 (1.1-1.5); ALKALINE PHOSPHATASE 70 IU/L (46-116); ANION GAP 0 (8-16); ASPARTATE AMINO TRANSFERASE 18 U/L (10-37); BILIRUBIN,TOTAL 0.8 MG/DL (0.1-1.0); BLOOD UREA NITROGEN 12 MG/DL (7-18); BUN/CREATININE RATIO 13.6 (5.4-32.0); CALCIUM 8.7 MG/DL (8.5-10.1); CHLORIDE 105 MMOL/L (99-107); CREATININE 0.88 MG/DL (0.60-1.10); GLUCOSE 101 MG/DL (70-104); MAGNESIUM 2.5 MG/DL (1.5-2.4); PHOSPHORUS 3.4 MG/DL (2.3-4.5); POTASSIUM 4.1 MMOL/L (3.5-5.1); SODIUM 142 MMOL/L (135-145); TOTAL PROTEIN 7.2 G/DL (6.4-8.2); eGFR 87 ML/MIN
[2020-12-13] MEDS: K and/or MAG REPLACEMENT MC SCH ×2 (08:00→20:00)
[2020-12-13] MEDS: budesonide 0.5mg/2ml UD nebule IH SCH (08:30)
[2020-12-13] MEDS: albuterol 2.5 MG/3 ML nebule NEB SCH ×5 (08:30→23:08)
[2020-12-13] MEDS: fluticasone nasal spray 16GM bottle NS SCH (08:50)
[2020-12-13] MEDS: montelukast 10mg tablet PO SCH (08:51)
[2020-12-13] MEDS: furosemide 40mg tablet PO SCH ×2 (08:51→19:58)
[2020-12-13] MEDS: loratadine 10mg tablet PO SCH (08:51)
[2020-12-13] MEDS: apixaban 5mg tablet PO SCH ×2 (08:51→19:58)
[2020-12-13] MEDS: potassium Cl 20 mEq SR tablet PO SCH ×2 (08:51→19:58)
[2020-12-13] MEDS: carVEDilol 3.125mg tablet PO SCH ×2 (08:53→19:58)
[2020-12-13] MEDS: aspirin 81mg, enteric-coated 1 TAB TABLET.DR PO SCH (08:53)
[2020-12-13] MEDS: losartan 50mg tablet PO SCH (08:53)
[2020-12-13] MEDS: atorvastatin 20mg tablet PO SCH (08:53)
[2020-12-13] MEDS: acetaminophen 325mg tablet PO PRN ×2 (09:36→16:50)
[2020-12-13 11:00] VITALS: BP 113/46
[2020-12-13 15:00] VITALS: BP 118/48
--- NOTE | 2020-12-13 17:41 | NUR ---
Orientee documentation: I have reviewed and agree with all interventions, assessments performed and documented by Yaima DOBBS . Orientee Medication Administration: For this medication-pass time frame, all medication were reviewed, dispensed, administered and documented per hospital policy by Yaima DOBBS.
--- NOTE | 2020-12-13 18:22 | NUR ---
Problems reprioritized. Patient report given, questions answered & plan of care reviewed with Julia DOBBS.
[2020-12-13 19:00] VITALS: BP 151/73
[2020-12-13] MEDS ORDERED: heparin 10,000 units/1 ML INJ IV ONE (22:20)
[2020-12-13 22:56] LABS: PARTIAL THROMBOPLASTIN TIME 26 SECONDS (22-32)
[2020-12-13 23:00] VITALS: BP 134/64
[2020-12-14] MEDS: heparin 25,000 UNIT/250ml bag 250 ML IV SCH ×3 (01:05→21:21)
[2020-12-14] MEDS: acetaminophen 325mg tablet PO PRN ×3 (01:11→20:53)
[2020-12-14] MEDS: albuterol 2.5 MG/3 ML nebule NEB PRN ×3 (02:23→23:13)
[2020-12-14 03:00] VITALS: BP 128/72
[2020-12-14 03:40] LABS: BASOPHILS % (AUTO) 0.6 % (0-1); EOSINOPHILS # (AUTO) 0.1 X10'3 (0-0.9); EOSINOPHILS % (AUTO) 1.6 % (0-6); HEMATOCRIT 35.2 % (42.0-52.0); HEMOGLOBIN 11.6 g/dl (14.0-17.9); LYMPHOCYTES # (AUTO) 0.8 X10'3 (1.1-4.8); LYMPHOCYTES % (AUTO) 15.6 % (21-51); MEAN CORPUSCULAR HEMOGLOBIN 33.4 PG (27.0-31.0); MEAN CORPUSCULAR VOLUME 101.2 FL (78-98); MEAN PLATELET VOLUME 7.6 FL (7.4-10.4); MONOCYTES # (AUTO) 0.5 X10'3 (0-0.9); MONOCYTES % (AUTO) 11.1 % (2-12); NEUTROPHILS # (AUTO) 3.4 X10'3 (1.8-7.7); NEUTROPHILS % (AUTO) 71.1 % (42-75); PLATELET COUNT 136 X10'3 (140-440); RED BLOOD COUNT 3.47 X10'6 (4.70-6.10); RED CELL DISTRIBUTION WIDTH 13.6 % (11.5-14.5); WHITE BLOOD COUNT 4.8 X10'3 (4.5-11.0)
[2020-12-14 03:59] LABS: ALANINE AMINOTRANSFERASE 27 U/L (12-78); ALBUMIN 3.3 G/DL (3.4-5.0); ALBUMIN/GLOBULIN RATIO 0.8 (1.1-1.5); ALKALINE PHOSPHATASE 76 IU/L (46-116); ANION GAP 5 (8-16); ASPARTATE AMINO TRANSFERASE 24 U/L (10-37); BILIRUBIN,TOTAL 0.7 MG/DL (0.1-1.0); BLOOD UREA NITROGEN 15 MG/DL (7-18); BUN/CREATININE RATIO 17.9 (5.4-32.0); CALCIUM 8.8 MG/DL (8.5-10.1); CHLORIDE 105 MMOL/L (99-107); CREATININE 0.84 MG/DL (0.60-1.10); GLUCOSE 109 MG/DL (70-104); MAGNESIUM 2.4 MG/DL (1.5-2.4); PHOSPHORUS 3.4 MG/DL (2.3-4.5); POTASSIUM 4.4 MMOL/L (3.5-5.1); SODIUM 146 MMOL/L (135-145); TOTAL CARBON DIOXIDE 36.5 MMOL/L (24-32); TOTAL PROTEIN 7.4 G/DL (6.4-8.2); eGFR > 90 ML/MIN
[2020-12-14 06:00] VITALS: BP 153/86
--- NOTE | 2020-12-14 06:32 | NUR ---
Problems reprioritized. Patient report given, questions answered & plan of care reviewed with DILIA Ingram.
[2020-12-14] MEDS: normal saline 1000ml 1,000 ML IV SCH ×2 (06:46→21:09)
[2020-12-14] MEDS: budesonide 0.5mg/2ml UD nebule IH SCH ×2 (07:53→18:51)
[2020-12-14] MEDS: K and/or MAG REPLACEMENT MC SCH ×2 (08:00→20:00)
[2020-12-14] MEDS: montelukast 10mg tablet PO SCH (08:19)
[2020-12-14] MEDS: aspirin 81mg, enteric-coated 1 TAB TABLET.DR PO SCH (08:19)
[2020-12-14] MEDS: furosemide 40mg tablet PO SCH ×2 (08:20→20:51)
[2020-12-14] MEDS: carVEDilol 3.125mg tablet PO SCH ×2 (08:20→20:53)
[2020-12-14] MEDS: atorvastatin 20mg tablet PO SCH (08:20)
[2020-12-14] MEDS: potassium Cl 20 mEq SR tablet PO SCH ×2 (08:20→20:52)
[2020-12-14] MEDS: loratadine 10mg tablet PO SCH (08:20)
[2020-12-14] MEDS: losartan 50mg tablet PO SCH (08:21)
[2020-12-14] MEDS: fluticasone nasal spray 16GM bottle NS SCH (08:24)
[2020-12-14] MEDS: heparin 10,000 units/1 ML INJ IV PRN ×2 (10:18→15:11)
[2020-12-14 11:00] VITALS: BP 133/70
[2020-12-14] MEDS: albuterol 2.5 MG/3 ML nebule NEB SCH ×3 (11:21→18:51)
--- NOTE | 2020-12-14 13:46 | NUR ---
Initial: Pt presented with c/o weakness in his hands, noted to have signs of hypercapnia present with elevated pCO2 per H&P. Stroke W/U is essentially negative per MD note. Pt s/p BSS with ST recs to continue regular texture consistency as pt swallowing well with no aspiration noted. Pt on a heart healthy diet documented with mostly 100% PO intake throughout LOS. D/w dietary to send double protein with meals for satiety. LBM 12/12. Will continue to follow and monitor need for additional nutrition intervention. Recommendations: 1) Continue heart healthy diet; advance to regular diet as medically indicated given lipid panel WNL 2) Double eggs WB, double meat BIDLD for satiety 3) Bowel care PRN 4) Scaled weight this admit; weekly scaled weights thereafter Addendum: 12/14/20 at [address] Amended: Links added.
[2020-12-14 15:00] VITALS: BP 146/75
--- NOTE | 2020-12-14 15:25 | NUR ---
DR. DELGADO PAGED: Moshe Ko [phone]: Pt's states that Dr. Blair ([phone])would like to speak to you regarding Lupron injection to be given before Saturday 12/16. And Pt's son Dk would like you to phone him . Thanks [phone]
[2020-12-14 18:00] VITALS: BP 136/71
--- NOTE | 2020-12-14 18:38 | NUR ---
Problems reprioritized. Patient report given, questions answered & plan of care reviewed with BRII RN.
[2020-12-14 22:00] VITALS: BP 153/87
[2020-12-15 02:00] VITALS: BP 149/80
[2020-12-15] MEDS: acetaminophen 325mg tablet PO PRN ×3 (03:10→23:15)
[2020-12-15] MEDS: albuterol 2.5 MG/3 ML nebule NEB PRN ×2 (03:40→23:36)
--- NOTE | 2020-12-15 06:10 | NUR ---
Patient in room PCU 3027. I have received report from Ni RN and had the opportunity to ask questions and assume patient care. Pt sitting up at edge of bed, back facing the doorway. breathing even, non labored. O2/NC/4LPM. Pt alert to voice. endorses pain to BLE, right worse than left. NS running @27
[2020-12-15 06:13] LABS: BASOPHILS % (AUTO) 0.5 % (0-1); EOSINOPHILS # (AUTO) 0.1 X10'3 (0-0.9); EOSINOPHILS % (AUTO) 2.7 % (0-6); HEMATOCRIT 36.7 % (42.0-52.0); HEMOGLOBIN 11.8 g/dl (14.0-17.9); LYMPHOCYTES # (AUTO) 0.8 X10'3 (1.1-4.8); LYMPHOCYTES % (AUTO) 18.3 % (21-51); MEAN CORPUSCULAR HEMOGLOBIN 33.1 PG (27.0-31.0); MEAN CORPUSCULAR HGB CONC 32.1 g/dL (33.0-36.5); MEAN CORPUSCULAR VOLUME 102.8 FL (78-98); MONOCYTES # (AUTO) 0.5 X10'3 (0-0.9); MONOCYTES % (AUTO) 11.4 % (2-12); NEUTROPHILS # (AUTO) 2.9 X10'3 (1.8-7.7); NEUTROPHILS % (AUTO) 67.1 % (42-75); PLATELET COUNT 130 X10'3 (140-440); RED BLOOD COUNT 3.56 X10'6 (4.70-6.10); RED CELL DISTRIBUTION WIDTH 13.5 % (11.5-14.5); WHITE BLOOD COUNT 4.4 X10'3 (4.5-11.0)
[2020-12-15 06:24] LABS: ALANINE AMINOTRANSFERASE 25 U/L (12-78); ALBUMIN 3.3 G/DL (3.4-5.0); ALBUMIN/GLOBULIN RATIO 0.8 (1.1-1.5); ALKALINE PHOSPHATASE 78 IU/L (46-116); ANION GAP 3 (8-16); ASPARTATE AMINO TRANSFERASE 18 U/L (10-37); BILIRUBIN,TOTAL 0.5 MG/DL (0.1-1.0); BLOOD UREA NITROGEN 15 MG/DL (7-18); BUN/CREATININE RATIO 17.6 (5.4-32.0); CALCIUM 8.7 MG/DL (8.5-10.1); CHLORIDE 105 MMOL/L (99-107); CREATININE 0.85 MG/DL (0.60-1.10); GLUCOSE 118 MG/DL (70-104); MAGNESIUM 2.4 MG/DL (1.5-2.4); PHOSPHORUS 3.7 MG/DL (2.3-4.5); POTASSIUM 4.1 MMOL/L (3.5-5.1); SODIUM 145 MMOL/L (135-145); TOTAL CARBON DIOXIDE 37.2 MMOL/L (24-32); TOTAL PROTEIN 7.7 G/DL (6.4-8.2); eGFR 90 ML/MIN
[2020-12-15 07:00] VITALS: BP 146/77
[2020-12-15] MEDS: albuterol 2.5 MG/3 ML nebule NEB SCH ×4 (07:08→19:00)
[2020-12-15] MEDS: budesonide 0.5mg/2ml UD nebule IH SCH ×2 (07:08→20:10)
[2020-12-15] MEDS: K and/or MAG REPLACEMENT MC SCH ×2 (08:00→19:12)
[2020-12-15] MEDS: fluticasone nasal spray 16GM bottle NS SCH (09:32)
[2020-12-15] MEDS: losartan 50mg tablet PO SCH (09:33)
[2020-12-15] MEDS: atorvastatin 20mg tablet PO SCH (09:33)
[2020-12-15] MEDS: loratadine 10mg tablet PO SCH (09:33)
[2020-12-15] MEDS: carVEDilol 3.125mg tablet PO SCH ×2 (09:33→19:22)
[2020-12-15] MEDS: aspirin 81mg, enteric-coated 1 TAB TABLET.DR PO SCH (09:33)
[2020-12-15] MEDS: montelukast 10mg tablet PO SCH (09:33)
[2020-12-15] MEDS: potassium Cl 20 mEq SR tablet PO SCH ×2 (09:34→19:22)
[2020-12-15] MEDS: furosemide 40mg tablet PO SCH ×2 (09:34→19:22)
[2020-12-15 11:00] VITALS: BP 142/78
[2020-12-15] MEDS: normal saline 1000ml 1,000 ML IV SCH (13:57)
[2020-12-15 15:00] VITALS: BP 154/85
[2020-12-15] MEDS: heparin 10,000 units/1 ML INJ IV PRN (16:43)
[2020-12-15 18:00] VITALS: BP 127/67
--- NOTE | 2020-12-15 18:40 | NUR ---
Problems reprioritized. Patient report given, questions answered & plan of care reviewed with Supriya DOBBS. Pt sitting up in chair eating dinner. no s/sx acute distress
[2020-12-15] MEDS: heparin 25,000 UNIT/250ml bag 250 ML IV SCH (20:18)
[2020-12-16] MEDS: normal saline 1000ml 1,000 ML IV SCH (01:06)
[2020-12-16 05:00] VITALS: BP 148/85
--- NOTE | 2020-12-16 06:23 | NUR ---
Problems reprioritized. Patient report given, questions answered & plan of care reviewed with Jenny DOBBS .
--- NOTE | 2020-12-16 06:40 | NUR ---
Patient in room PCU 3027. I have received report from Supriya DOBBS and had the opportunity to ask questions and assume patient care. Pt alert to voice, sitting up in bed side recliner with CPAP in place at 35%FI02. breathing even. safety measures in place. no s/sx acute distress.
[2020-12-16 07:33] VITALS: BP 140/73
[2020-12-16] MEDS: albuterol 2.5 MG/3 ML nebule NEB SCH ×4 (07:52→19:59)
[2020-12-16] MEDS: budesonide 0.5mg/2ml UD nebule IH SCH ×2 (07:52→19:59)
[2020-12-16] MEDS: K and/or MAG REPLACEMENT MC SCH ×2 (08:00→20:00)
[2020-12-16] MEDS: losartan 50mg tablet PO SCH (08:57)
[2020-12-16] MEDS: carVEDilol 3.125mg tablet PO SCH ×2 (08:58→20:00)
[2020-12-16] MEDS: potassium Cl 20 mEq SR tablet PO SCH ×2 (08:59→23:41)
[2020-12-16] MEDS: loratadine 10mg tablet PO SCH (09:00)
[2020-12-16] MEDS: aspirin 81mg, enteric-coated 1 TAB TABLET.DR PO SCH (09:01)
[2020-12-16] MEDS: montelukast 10mg tablet PO SCH (09:01)
[2020-12-16] MEDS: atorvastatin 20mg tablet PO SCH (09:02)
[2020-12-16] MEDS: furosemide 40mg tablet PO SCH ×2 (09:03→23:41)
[2020-12-16] MEDS: fluticasone nasal spray 16GM bottle NS SCH (09:04)
[2020-12-16] MEDS: acetaminophen 325mg tablet PO PRN ×2 (09:07→16:39)
[2020-12-16 11:00] VITALS: BP 136/75
[2020-12-16 18:00] VITALS: BP 136/75
--- NOTE | 2020-12-16 18:19 | NUR ---
Student documentation: I have reviewed and agree with all interventions, assessments performed and documented by Izzy DOBBS. Student Medication Administration: For this medication-pass time frame, all medication were reviewed, dispensed, administered and documented per hospital policy by Izzy DOBBS.
--- NOTE | 2020-12-16 18:25 | NUR ---
Patient in room PCU 3027. I have received report from Jenny DOBBS and had the opportunity to ask questions and assume patient care.
--- NOTE | 2020-12-16 18:51 | NUR ---
Problems reprioritized. Patient report given, questions answered & plan of care reviewed with Layne DOBBS. Pt alert, sitting in chair at bedside.
[2020-12-16 22:00] VITALS: BP 133/81
[2020-12-16] MEDS: heparin 10,000 units/1 ML INJ IV PRN (23:44)
[2020-12-16] MEDS: heparin 25,000 UNIT/250ml bag 250 ML IV SCH (23:46)
[2020-12-17 02:00] VITALS: BP 101/72
--- NOTE | 2020-12-17 06:45 | NUR ---
Patient in room PCU 3027. I have received report from Concepción DOBBS and had the opportunity to ask questions and assume patient care. Pt sitting up in bedside chair, alert to voice, CPAP in place, assisted with urinal. denies pain at this time. safety measures in place. no s/sx acute distress.
[2020-12-17] MEDS: budesonide 0.5mg/2ml UD nebule IH SCH (07:15)
[2020-12-17] MEDS: albuterol 2.5 MG/3 ML nebule NEB SCH ×2 (07:15→11:26)
[2020-12-17] MEDS: K and/or MAG REPLACEMENT MC SCH (08:00)
--- NOTE | 2020-12-17 08:12 | NUR ---
Problems reprioritized. Patient report given, questions answered & plan of care reviewed with Jenny DOBBS.
[2020-12-17 08:45] VITALS: BP_SYST 149
[2020-12-17] MEDS: loratadine 10mg tablet PO SCH (08:45)
[2020-12-17] MEDS: aspirin 81mg, enteric-coated 1 TAB TABLET.DR PO SCH (08:45)
[2020-12-17] MEDS: carVEDilol 3.125mg tablet PO SCH (08:45)
[2020-12-17] MEDS: potassium Cl 20 mEq SR tablet PO SCH (08:45)
[2020-12-17] MEDS: montelukast 10mg tablet PO SCH (08:45)
[2020-12-17] MEDS: losartan 50mg tablet PO SCH (08:45)
[2020-12-17] MEDS: furosemide 40mg tablet PO SCH (08:45)
[2020-12-17] MEDS: fluticasone nasal spray 16GM bottle NS SCH (08:46)
[2020-12-17] MEDS: atorvastatin 20mg tablet PO SCH (08:46)
[2020-12-17] MEDS: acetaminophen 325mg tablet PO PRN (08:54)
--- NOTE | 2020-12-17 12:34 | NUR ---
Kiki at [facility] called. Dr. Mccall paged. per kiki, updated discharge summary needed FREDDIE and bed will give given to pt. Kiki: Tele: [phone] (option 1) RE: Moshe Bains: [id number]: [facility] requesting updated discharge summary. they have a bed pending the receipt of that discharge summary. -#[phone]
--- NOTE | 2020-12-17 14:26 | NUR ---
Called [facility] to give report. [facility] to call back when nurse assigned. notified [facility] nursing staff that pick pulling machine operator is scheduled for less than an hour.
--- NOTE | 2020-12-17 14:50 | NUR ---
Called Report to Krystin DOBBS at [facility]> all questions answered.
--- NOTE | 2020-12-17 15:35 | NUR ---
Pt stable for transfer per MD order. Krystin DOBBS at [facility] called and given report. all questions answered. PIV left intact to [facility]: Heparin running at 2000 (per protocol). manager of case management discontinued. pt hooked to [facility] transport staff's heart monitor. Pt two person assisted to sit on gurney. belongings collected and sent with pt. transfer packet given to [facility] staff. no s/sx acute distress at discharge/transfer.
== END 2020-12-17 15:35 | disposition short-term general hospital (02) | DRG 309 ==
LOC: ER 21:35 → ED HOLD 12-10 02:40 → PCU 3S 12-10 23:00
PROVIDERS: ADMIT Internal Medicine; ATTEND Family Medicine
PROC: 5A09357 Assistance with Respiratory Ventilation, Less than 24 Consecutive Hours, Continuous Positive Airway Pressure (ICD-10-PCS; principal; 2020-12-11)
PROC: B3251ZZ Computerized Tomography (CT Scan) of Bilateral Common Carotid Arteries using Low Osmolar Contrast (ICD-10-PCS; 2020-12-11)
PROC: B32G1ZZ Computerized Tomography (CT Scan) of Bilateral Vertebral Arteries using Low Osmolar Contrast (ICD-10-PCS; 2020-12-11)
PROC: B32R1ZZ Computerized Tomography (CT Scan) of Intracranial Arteries using Low Osmolar Contrast (ICD-10-PCS; 2020-12-11)
PROC: B3281ZZ Computerized Tomography (CT Scan) of Bilateral Internal Carotid Arteries using Low Osmolar Contrast (ICD-10-PCS; 2020-12-11)
PROC: 5A09357 Assistance with Respiratory Ventilation, Less than 24 Consecutive Hours, Continuous Positive Airway Pressure (ICD-10-PCS; 2020-12-12)
PROC: B32T1ZZ Computerized Tomography (CT Scan) of Left Pulmonary Artery using Low Osmolar Contrast (ICD-10-PCS; 2020-12-12)
PROC: B3201ZZ Computerized Tomography (CT Scan) of Thoracic Aorta using Low Osmolar Contrast (ICD-10-PCS; 2020-12-12)
PROC: B32S1ZZ Computerized Tomography (CT Scan) of Right Pulmonary Artery using Low Osmolar Contrast (ICD-10-PCS; 2020-12-12)
PROC: 5A09357 Assistance with Respiratory Ventilation, Less than 24 Consecutive Hours, Continuous Positive Airway Pressure (ICD-10-PCS; 2020-12-13)
PROC: 5A09357 Assistance with Respiratory Ventilation, Less than 24 Consecutive Hours, Continuous Positive Airway Pressure (ICD-10-PCS; 2020-12-14)
PROC: 5A09357 Assistance with Respiratory Ventilation, Less than 24 Consecutive Hours, Continuous Positive Airway Pressure (ICD-10-PCS; 2020-12-16)
DX: T82.190A Other mechanical complication of cardiac electrode, initial encounter (principal); G45.9 Transient cerebral ischemic attack, unspecified; E66.2 Morbid (severe) obesity with alveolar hypoventilation; E87.2 Acidosis; E72.20 Disorder of urea cycle metabolism, unspecified; J44.0 Chronic obstructive pulmonary disease with (acute) lower respiratory infection; Z68.43 Body mass index [BMI] 50.0-59.9, adult; R29.6 Repeated falls; I50.9 Heart failure, unspecified; I11.0 Hypertensive heart disease with heart failure; Z20.822 Contact with and (suspected) exposure to COVID-19; E27.9 Disorder of adrenal gland, unspecified; Y71.2 Prosthetic and other implants, materials and accessory cardiovascular devices associated with adverse incidents; I48.91 Unspecified atrial fibrillation; M17.12 Unilateral primary osteoarthritis, left knee; N28.9 Disorder of kidney and ureter, unspecified; Z95.0 Presence of cardiac pacemaker; Z79.01 Long term (current) use of anticoagulants; Z79.82 Long term (current) use of aspirin; Z85.46 Personal history of malignant neoplasm of prostate; Z92.3 Personal history of irradiation; Z79.899 Other long term (current) drug therapy; Z71.3 Dietary counseling and surveillance; Y92.89 Other specified places as the place of occurrence of the external cause
CPT/HCPCS: 36415; 36600; 70450; 70496; 70498; 71045; 71275; 73630; 80053; 80061; 82140; 82607; 82803; 83036; 83735; 83880; 84100; 84443; 84484; 85018; 85025; 85610; 85651; 85730; 87635; 92508; 92616; 93005; 93306; 93880; 94640; 94660; 94760; 97110; 97116; 97161; 97530; 99285; G0378; J1644; J7030; J7626; Q9967

== ENCOUNTER 2021-01-07 15:24 | Inpatient (IN) | payer MEDICARE ==
[~2021-01-07] VITALS: Ht 182.9 cm; Wt 193.0 kg
[2021-01-07 02:00] VITALS: BP 128/76
[~2021-01-07 15:24] MED LIST changes: +APIX5TAB3 PO; -ASPI-1265 PO; +LORA10TA7 PO; +LOSA100T57 PO; -LOSA50TA64 PO
[2021-01-07 20:55] VITALS: BP 126/62
--- NOTE | 2021-01-07 20:55 | NUR ---
PATIENT ADMITTED TO ROOM 3024B DIRECT ADMIT FROM [facility] AFTER MISPLACED PACEMAKER LEADS WAS FIXED. PLACED COMFORTABLE IN BED. VITAL SIGNS TAKEN AND RECORDED.
[2021-01-07] MEDS ORDERED: temazepam 15mg capsule PO PRN (21:00)
[2021-01-07] MEDS ORDERED: diphenhydrAMINE 50 mg/ml inj IV PRN (22:45)
[2021-01-07] MEDS ORDERED: magnesium hydroxide 30ml (MOM) UD suspension PO PRN (22:45)
[2021-01-07] MEDS ORDERED: acetaminophen 650mg rectal suppository RC PRN (22:45)
[2021-01-07] MEDS ORDERED: morphine 2 MG/ML inj. syringe IV PRN ×2 (22:45)
[2021-01-07] MEDS ORDERED: HYDROcodone/acetaminophen 5mg/325mg tablet PO PRN (22:45)
[2021-01-07] MEDS ORDERED: diphenhydrAMINE 25mg capsule PO PRN (22:45)
[2021-01-07] MEDS ORDERED: mag hydrox/Alum hydrox/simeth 30ml oral suspension PO PRN (22:45)
[2021-01-07] MEDS ORDERED: ondansetron/PF 4mg/2ml inj IV PRN (22:45)
[2021-01-07] MEDS ORDERED: ondansetron 4mg rapidly disintigrating tab PO PRN (22:45)
[2021-01-07] MEDS ORDERED: bisacodyl 10mg suppository rectal RC PRN (22:45)
[2021-01-07] MEDS ORDERED: HYDROcodone/acetaminophen 10/325mg tab PO PRN (22:45)
[2021-01-07] MEDS ORDERED: acetaminophen 325mg tablet PO PRN (22:45)
[2021-01-08 01:24] LABS: BASOPHILS % (AUTO) 0.6 % (0-1); EOSINOPHILS # (AUTO) 0.1 X10'3 (0-0.9); EOSINOPHILS % (AUTO) 1.3 % (0-6); HEMATOCRIT 33.9 % (42.0-52.0); HEMOGLOBIN 11.4 g/dl (14.0-17.9); LYMPHOCYTES # (AUTO) 1.5 X10'3 (1.1-4.8); LYMPHOCYTES % (AUTO) 21.5 % (21-51); MEAN CORPUSCULAR HGB CONC 33.6 g/dL (33.0-36.5); MEAN CORPUSCULAR VOLUME 98.2 FL (78-98); MEAN PLATELET VOLUME 8.1 FL (7.4-10.4); MONOCYTES # (AUTO) 0.5 X10'3 (0-0.9); MONOCYTES % (AUTO) 7.6 % (2-12); NEUTROPHILS # (AUTO) 4.9 X10'3 (1.8-7.7); PLATELET COUNT 259 X10'3 (140-440); RED BLOOD COUNT 3.45 X10'6 (4.70-6.10); WHITE BLOOD COUNT 7.1 X10'3 (4.5-11.0)
[2021-01-08 01:35] LABS: PARTIAL THROMBOPLASTIN TIME 23 SECONDS (22-32)
[2021-01-08 01:43] LABS: ALANINE AMINOTRANSFERASE 46 U/L (12-78); ALBUMIN 2.7 G/DL (3.4-5.0); ALBUMIN/GLOBULIN RATIO 0.6 (1.1-1.5); ALKALINE PHOSPHATASE 84 IU/L (46-116); ANION GAP 7 (8-16); ASPARTATE AMINO TRANSFERASE 43 U/L (10-37); BILIRUBIN,TOTAL 0.4 MG/DL (0.1-1.0); BLOOD UREA NITROGEN 20 MG/DL (7-18); BUN/CREATININE RATIO 22.7 (5.4-32.0); CALCIUM 8.9 MG/DL (8.5-10.1); CHLORIDE 99 MMOL/L (99-107); CREATININE 0.88 MG/DL (0.60-1.10); MAGNESIUM 1.8 MG/DL (1.5-2.4); PHOSPHORUS 2.7 MG/DL (2.3-4.5); POTASSIUM 3.2 MMOL/L (3.5-5.1); SODIUM 141 MMOL/L (135-145); TOTAL CARBON DIOXIDE 34.9 MMOL/L (24-32); TOTAL PROTEIN 7.5 G/DL (6.4-8.2); eGFR 87 ML/MIN
[2021-01-08 01:50] LABS: GLUCOSE 117 MG/DL (70-104)
[2021-01-08 02:00] VITALS: BP 128/76
--- NOTE | 2021-01-08 06:30 | NUR ---
Problems reprioritized. Patient report given, questions answered & plan of care reviewed with ALEXEY DOBBS.
[2021-01-08] MEDS: pantoprazole 40mg Tablet.DR PO SCH (07:30)
[2021-01-08] MEDS: docusate sod 100mg capsule PO SCH ×2 (08:00→20:00)
[2021-01-08 09:02] VITALS: BP 110/75
[2021-01-08] MEDS ORDERED: potassium Cl 40MEQ/1/2NS 520ml 520 ML IV PRN (09:15)
[2021-01-08] MEDS ORDERED: magnesium Cl slow-release 64mg tablet PO PRN (09:15)
[2021-01-08] MEDS ORDERED: ipratropium/albuterol 3ml nebule NEB PRN (09:20)
[2021-01-08] MEDS: furosemide 40mg/4ml inj IV SCH (09:32)
[2021-01-08] MEDS: losartan 50mg tablet PO SCH (09:33)
[2021-01-08 11:47] VITALS: BP 110/60
[2021-01-08] MEDS: apixaban 5mg tablet PO SCH (20:00)
[2021-01-08] MEDS: K and/or MAG REPLACEMENT MC SCH (20:00)
[2021-01-08] MEDS: carVEDilol 3.125mg tablet PO SCH (20:00)
[2021-01-09] VITALS: BP 125/78
[2021-01-09 04:00] VITALS: BP 148/86
--- NOTE | 2021-01-09 06:25 | NUR ---
REPORT GIVEN TO ALEXEY/DILIA
[2021-01-09] MEDS: docusate sod 100mg capsule PO SCH ×2 (07:54→19:46)
[2021-01-09] MEDS: pantoprazole 40mg Tablet.DR PO SCH (07:54)
[2021-01-09] MEDS: losartan 50mg tablet PO SCH (07:54)
[2021-01-09] MEDS: carVEDilol 3.125mg tablet PO SCH ×2 (07:54→19:46)
[2021-01-09] MEDS: apixaban 5mg tablet PO SCH ×2 (07:54→19:46)
[2021-01-09] MEDS: furosemide 40mg/4ml inj IV SCH ×2 (07:55→15:31)
[2021-01-09] MEDS: K and/or MAG REPLACEMENT MC SCH ×2 (08:35→19:46)
[2021-01-09] MEDS: fluticasone nasal spray 16GM bottle NS SCH (08:35)
[2021-01-09 09:23] LABS: BASOPHILS % (AUTO) 0.7 % (0-1); EOSINOPHILS # (AUTO) 0.1 X10'3 (0-0.9); EOSINOPHILS % (AUTO) 1.4 % (0-6); HEMATOCRIT 34.1 % (42.0-52.0); HEMOGLOBIN 11.5 g/dl (14.0-17.9); LYMPHOCYTES # (AUTO) 1.2 X10'3 (1.1-4.8); LYMPHOCYTES % (AUTO) 22.7 % (21-51); MEAN CORPUSCULAR HEMOGLOBIN 33.1 PG (27.0-31.0); MEAN CORPUSCULAR HGB CONC 33.8 g/dL (33.0-36.5); MEAN CORPUSCULAR VOLUME 98.1 FL (78-98); MEAN PLATELET VOLUME 7.7 FL (7.4-10.4); MONOCYTES # (AUTO) 0.5 X10'3 (0-0.9); MONOCYTES % (AUTO) 9.5 % (2-12); NEUTROPHILS # (AUTO) 3.5 X10'3 (1.8-7.7); NEUTROPHILS % (AUTO) 65.7 % (42-75); PLATELET COUNT 233 X10'3 (140-440); RED BLOOD COUNT 3.48 X10'6 (4.70-6.10); WHITE BLOOD COUNT 5.3 X10'3 (4.5-11.0)
[2021-01-09 09:41] LABS: ALANINE AMINOTRANSFERASE 48 U/L (12-78); ALBUMIN 2.7 G/DL (3.4-5.0); ALBUMIN/GLOBULIN RATIO 0.6 (1.1-1.5); ALKALINE PHOSPHATASE 84 IU/L (46-116); ANION GAP 6 (8-16); ASPARTATE AMINO TRANSFERASE 40 U/L (10-37); BILIRUBIN,TOTAL 0.5 MG/DL (0.1-1.0); BLOOD UREA NITROGEN 19 MG/DL (7-18); BUN/CREATININE RATIO 19.4 (5.4-32.0); CALCIUM 8.8 MG/DL (8.5-10.1); CHLORIDE 100 MMOL/L (99-107); CREATININE 0.98 MG/DL (0.60-1.10); GLUCOSE 131 MG/DL (70-104); POTASSIUM 3.2 MMOL/L (3.5-5.1); SODIUM 138 MMOL/L (135-145); TOTAL PROTEIN 7.4 G/DL (6.4-8.2); eGFR 77 ML/MIN
[2021-01-09] MEDS: potassium Cl 20 mEq SR tablet PO PRN ×3 (10:39→23:59)
[2021-01-09 11:53] VITALS: BP 130/64
[2021-01-09 18:00] VITALS: BP 129/52
[2021-01-09] MEDS: budesonide 0.5mg/2ml UD nebule IH SCH (20:19)
[2021-01-09] MEDS: ipratropium/albuterol 3ml nebule NEB SCH (20:19)
[2021-01-09 22:00] VITALS: BP 139/70
[2021-01-10 05:37] VITALS: BP 122/53
[2021-01-10 06:00] VITALS: BP 100/58
[2021-01-10 06:00] LABS: EOSINOPHILS # (AUTO) 0.1 X10'3 (0-0.9); RED CELL DISTRIBUTION WIDTH 14.6 % (11.5-14.5)
[2021-01-10 06:04] LABS: BASOPHILS % (AUTO) 0.7 % (0-1); EOSINOPHILS % (AUTO) 2.1 % (0-6); HEMATOCRIT 34.7 % (42.0-52.0); HEMOGLOBIN 11.5 g/dl (14.0-17.9); LYMPHOCYTES # (AUTO) 1.3 X10'3 (1.1-4.8); LYMPHOCYTES % (AUTO) 26.7 % (21-51); MEAN CORPUSCULAR HEMOGLOBIN 32.9 PG (27.0-31.0); MEAN CORPUSCULAR HGB CONC 33.3 g/dL (33.0-36.5); MEAN CORPUSCULAR VOLUME 98.9 FL (78-98); MEAN PLATELET VOLUME 8.1 FL (7.4-10.4); MONOCYTES # (AUTO) 0.5 X10'3 (0-0.9); MONOCYTES % (AUTO) 10.5 % (2-12); NEUTROPHILS # (AUTO) 2.9 X10'3 (1.8-7.7); PLATELET COUNT 228 X10'3 (140-440); RED BLOOD COUNT 3.51 X10'6 (4.70-6.10); WHITE BLOOD COUNT 4.8 X10'3 (4.5-11.0)
[2021-01-10 06:19] LABS: ALANINE AMINOTRANSFERASE 46 U/L (12-78); ALBUMIN 2.6 G/DL (3.4-5.0); ALBUMIN/GLOBULIN RATIO 0.6 (1.1-1.5); ALKALINE PHOSPHATASE 93 IU/L (46-116); ANION GAP 4 (8-16); ASPARTATE AMINO TRANSFERASE 40 U/L (10-37); BILIRUBIN,TOTAL 0.5 MG/DL (0.1-1.0); BLOOD UREA NITROGEN 20 MG/DL (7-18); BUN/CREATININE RATIO 22.2 (5.4-32.0); CALCIUM 8.9 MG/DL (8.5-10.1); CHLORIDE 101 MMOL/L (99-107); GLUCOSE 111 MG/DL (70-104); POTASSIUM 3.5 MMOL/L (3.5-5.1); SODIUM 138 MMOL/L (135-145); TOTAL CARBON DIOXIDE 32.7 MMOL/L (24-32); TOTAL PROTEIN 7.2 G/DL (6.4-8.2); eGFR 84 ML/MIN
--- NOTE | 2021-01-10 06:21 | NUR ---
Problems reprioritized. Patient report given, questions answered & plan of care reviewed with DILIA Stringer.
--- NOTE | 2021-01-10 06:30 | NUR ---
Patient in room PCU 3023. I have received report from Yael DOBBS and had the opportunity to ask questions and assume patient care.
[2021-01-10] MEDS: carVEDilol 3.125mg tablet PO SCH ×2 (08:00→19:18)
[2021-01-10] MEDS: K and/or MAG REPLACEMENT MC SCH ×2 (08:00→19:42)
[2021-01-10] MEDS: losartan 50mg tablet PO SCH (08:00)
[2021-01-10] MEDS: docusate sod 100mg capsule PO SCH ×2 (08:00→19:17)
[2021-01-10] MEDS: furosemide 40mg/4ml inj IV SCH (08:34)
[2021-01-10] MEDS: pantoprazole 40mg Tablet.DR PO SCH (08:34)
[2021-01-10] MEDS: fluticasone nasal spray 16GM bottle NS SCH (08:34)
[2021-01-10] MEDS: apixaban 5mg tablet PO SCH ×2 (08:34→19:16)
[2021-01-10] MEDS: budesonide 0.5mg/2ml UD nebule IH SCH ×2 (09:16→19:56)
[2021-01-10] MEDS: ipratropium/albuterol 3ml nebule NEB SCH ×4 (09:16→19:56)
[2021-01-10 11:00] VITALS: BP 103/63
[2021-01-10 18:00] VITALS: BP 136/75
--- NOTE | 2021-01-10 18:18 | NUR ---
Problems reprioritized. Patient report given, questions answered & plan of care reviewed with Cammy RN.
--- NOTE | 2021-01-10 19:30 | NUR ---
patient complains of sore buttox. patient repositioned to semi-fowlers position. patient is A/0X3 and eating/drinking snacks while watching TV.
[2021-01-10 22:00] VITALS: BP 130/60
[2021-01-11 02:00] VITALS: BP 127/52
[2021-01-11 06:00] VITALS: BP 120/47
[2021-01-11 06:15] LABS: HEMOGLOBIN 11.8 g/dl (14.0-17.9); RED CELL DISTRIBUTION WIDTH 14.4 % (11.5-14.5)
[2021-01-11 06:18] LABS: BASOPHILS % (AUTO) 0.4 % (0-1); EOSINOPHILS # (AUTO) 0.1 X10'3 (0-0.9); EOSINOPHILS % (AUTO) 2.2 % (0-6); HEMATOCRIT 34.5 % (42.0-52.0); LYMPHOCYTES # (AUTO) 1.1 X10'3 (1.1-4.8); LYMPHOCYTES % (AUTO) 23.1 % (21-51); MEAN CORPUSCULAR HEMOGLOBIN 33.5 PG (27.0-31.0); MEAN CORPUSCULAR HGB CONC 34.1 g/dL (33.0-36.5); MEAN CORPUSCULAR VOLUME 98.3 FL (78-98); MEAN PLATELET VOLUME 7.6 FL (7.4-10.4); MONOCYTES # (AUTO) 0.5 X10'3 (0-0.9); MONOCYTES % (AUTO) 10.4 % (2-12); NEUTROPHILS % (AUTO) 63.9 % (42-75); PLATELET COUNT 193 X10'3 (140-440); RED BLOOD COUNT 3.51 X10'6 (4.70-6.10); WHITE BLOOD COUNT 4.7 X10'3 (4.5-11.0)
[2021-01-11 06:36] LABS: ALANINE AMINOTRANSFERASE 47 U/L (12-78); ALBUMIN 2.6 G/DL (3.4-5.0); ALBUMIN/GLOBULIN RATIO 0.6 (1.1-1.5); ALKALINE PHOSPHATASE 92 IU/L (46-116); ANION GAP 5 (8-16); ASPARTATE AMINO TRANSFERASE 39 U/L (10-37); BILIRUBIN,TOTAL 0.5 MG/DL (0.1-1.0); BLOOD UREA NITROGEN 16 MG/DL (7-18); BUN/CREATININE RATIO 19.8 (5.4-32.0); CALCIUM 8.6 MG/DL (8.5-10.1); CHLORIDE 102 MMOL/L (99-107); CREATININE 0.81 MG/DL (0.60-1.10); GLUCOSE 116 MG/DL (70-104); POTASSIUM 3.5 MMOL/L (3.5-5.1); SODIUM 142 MMOL/L (135-145); TOTAL PROTEIN 7.2 G/DL (6.4-8.2); eGFR > 90 ML/MIN
[2021-01-11] MEDS: K and/or MAG REPLACEMENT MC SCH (08:00)
[2021-01-11] MEDS: docusate sod 100mg capsule PO SCH (08:00)
[2021-01-11] MEDS: apixaban 5mg tablet PO SCH (08:18)
[2021-01-11] MEDS: pantoprazole 40mg Tablet.DR PO SCH (08:18)
[2021-01-11] MEDS: furosemide 40mg/4ml inj IV SCH (08:18)
[2021-01-11] MEDS: fluticasone nasal spray 16GM bottle NS SCH (08:19)
[2021-01-11] MEDS: losartan 50mg tablet PO SCH (08:39)
[2021-01-11] MEDS: carVEDilol 3.125mg tablet PO SCH (08:39)
[2021-01-11] MEDS: budesonide 0.5mg/2ml UD nebule IH SCH (09:12)
[2021-01-11] MEDS: ipratropium/albuterol 3ml nebule NEB SCH ×2 (09:12→12:12)
[2021-01-11 11:00] VITALS: BP 107/67
== END 2021-01-11 15:25 | DRG 291 ==
LOC: PCU 3S 15:24 → UNDOADMIN 15:24 → PCU 3S 20:47
PROVIDERS: ADMIT Family Medicine; ATTEND Internal Medicine
PROC: 5A09357 Assistance with Respiratory Ventilation, Less than 24 Consecutive Hours, Continuous Positive Airway Pressure (ICD-10-PCS; principal; 2021-01-08)
DX: I11.0 Hypertensive heart disease with heart failure (principal); I50.23 Acute on chronic systolic (congestive) heart failure; E66.2 Morbid (severe) obesity with alveolar hypoventilation; Z68.43 Body mass index [BMI] 50.0-59.9, adult; D64.9 Anemia, unspecified; E87.6 Hypokalemia; I48.91 Unspecified atrial fibrillation; I73.9 Peripheral vascular disease, unspecified; R26.9 Unspecified abnormalities of gait and mobility; M17.0 Bilateral primary osteoarthritis of knee; J44.9 Chronic obstructive pulmonary disease, unspecified; Z79.01 Long term (current) use of anticoagulants; Z95.0 Presence of cardiac pacemaker; Z85.46 Personal history of malignant neoplasm of prostate; Z86.73 Personal history of transient ischemic attack (TIA), and cerebral infarction without residual deficits; Z79.899 Other long term (current) drug therapy
CPT/HCPCS: 36415; 80053; 83735; 83880; 84100; 85025; 85610; 85730; 87081; 94640; 94660; 94760; 97110; 97161; 97530; G0378; J1940; J7626